=== PATIENT | female | born 1985 | race Caucasian/White ===

== ENCOUNTER 2016-07-16 14:52 | Emergency (ER) | payer OTHER, MEDICAID ==
[2016-07-16 15:13] VITALS: BP 144/77
[2016-07-16] MEDS ORDERED: Ketorolac 60 MG/2 ML SDV IM ONE (15:21)
[2016-07-16] MEDS ORDERED: Bacitracin Oint 1 GM U/D Packet TOP ONE (15:21)
--- NOTE | 2016-07-16 15:45 | EDM.PDOC ---
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 Shortly after she developed a burning sensation on the anterior lower legs and some stinging on her hands. Within a few minutes she developed erythema and even and ulceration along the edge of her boot where the chemical was pushed against the skin. Location, General: Reports: lower extremity, left, lower extremity, right Place: work Quality: Reports: Burning Severity: moderate Context, Burn/Smoke Inhalation: Reports: other (Concentrated soap possibly bleach) - Related Data Allergies/ADRs: Allergies Allergy/AdvReac Type Severity Reaction Status Date / Time No Known Allergies Allergy Verified 03/12/16 19:14 Home Meds: Home Meds Omeprazole [Prilosec] 20 mg PO DAILY #30 capsule. 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: Psychiatric History: Reports: ADD Hematologic History: Reports: Anemia, Blood transfusion(s), Transfusion reaction - Infectious Disease History Infectious Disease History: Reports: Chicken pox - Past Surgical History Female Surgical History: Reports: Hysterectomy Social & Family History - Tobacco Use Smoking Status *Q: Never Smoker Years of Tobacco use: 15 Month Tobacco Last Used: 2014 Second Hand Smoke Exposure: No - Caffeine Use Caffeine Use: Reports: Coffee - Alcohol Use Days Per Week of Alcohol Use: 0 - Recreational Drug Use Recreational Drug Use: No Drug Use in Last 12 Months: No Recreational Drug Type: Reports: Amphetamines (Speed), Methamphetamine Recreational Drug Use Frequency: Not Used In Over 6 Months ED ROS GENERAL - Review of Systems Review Of Systems: See Below Constitutional: Denies: fever, chills Respiratory: Denies: Shortness of Breath Cardiovascular: Denies: Chest pain GI/Abdominal: Denies: Nausea, Vomiting Neurological: Reports: Other (Hands feel tingly). Denies: Headache ED EXAM, BURN/SMOKE INHALATION - Physical Exam Exam: See Below Exam Limited By: No limitations General Appearance: alert, mild distress (Looks fairly uncomfortable) Respiratory: no respiratory distress Extremities: other (Patient has a scattered papular erythematous reactive rash over the anterior aspect of both lower extremities, with a 1 x 4 cm shallow ulceration transverse across the lower anterior leg at the level of her boot rim ) Course - Vital Signs Last Recorded V/S: Last Vital Signs Temp 97.7 F 07/16/16 15:13 Pulse 97 07/16/16 15:13 Resp 16 07/16/16 15:13 BP 144/77 H 07/16/16 15:13 Pulse Ox 97 07/16/16 15:13 - Orders/Labs/Meds Meds: Medications Discontinued Medications Generic Name Dose Route Start Last Admin Trade Name Gilmer PRN Reason Stop Dose Admin Bacitracin 3 dose 07/16/16 15:21 07/16/16 15:28 Bacitracin Oint 1 Gm TOP 07/16/16 15:22 3 dose ONETIME ONE Administration Ketorolac Tromethamine 60 mg 07/16/16 15:21 07/16/16 15:27 Toradol IM 07/16/16 15:22 60 mg ONETIME ONE Administration - Re-Assessments/Exams Free Text/Narrative Re-Assessment/Exam: 07/16/16 15:52 Both legs were flushed thoroughly with saline. She was observed for an additional 30 minutes and given 60 mg of ketorolac IM. The reaction did not worsen. This was covered with bacitracin and dressings, Dr. Mckeon was consulted and will recheck her wounds tomorrow morning at 10:30. She was also discharged with ketorolac to take every 6-8 hours and 10 doses of hydrocodone for any additional pain control. Departure - Departure Time of Disposition: 16:01 Disposition: Home, Self-Care 01 Condition: good Clinical Impression: Chemical burn Instructions: Chemical Burn, [id number] Referrals: Tao Chapman Sr, MD [Primary Care Provider] - Forms: ED Department Discharge Care Plan Goals: Keep legs covered until rechecked tomorrow at 10:[address] Mckeon at the clinic. You will be worked in so if you may want to arrive a little earlier. Take ketorolac every 6-8 hours for pain and add hydrocodone if needed. Elevating the legs with cool compresses over the bandages may help.
== END 2016-07-16 16:01 | disposition home or self-care (01) ==
LOC: JP.ED 14:52
DX: T24.502A Corrosion of first degree of unspecified site of left lower limb, except ankle and foot, initial encounter (principal); T24.501A Corrosion of first degree of unspecified site of right lower limb, except ankle and foot, initial encounter; T55.0X1A Toxic effect of soaps, accidental (unintentional), initial encounter; K21.9 Gastro-esophageal reflux disease without esophagitis; Z86.2 Personal history of diseases of the blood and blood-forming organs and certain disorders involving the immune mechanism; Z90.710 Acquired absence of both cervix and uterus
CPT/HCPCS: 96372; 99283; J1885

== ENCOUNTER 2017-05-22 06:47 | Day surgery (SDC) | payer MEDICAID ==
[2017-05-22] MEDS ORDERED: Propofol 200 MG/20 ML SDV ONE (08:04)
[2017-05-22] MEDS ORDERED: fentaNYL 100 MCG/2 ML SDV ONE (08:04)
[2017-05-22] MEDS ORDERED: Midazolam 1 MG/ML 2 ML SDV ONE (08:05)
[2017-05-22] MEDS ORDERED: Sodium Chloride 0.9% 1,000 ML IV SCH (08:30)
[2017-05-22 09:30] VITALS: BP 111/72
--- NOTE | 2017-05-22 12:13 | PROC ---
DATE OF PROCEDURE: 05/22/2017 INDICATION: Franca is a 32-year-old female who comes in because of significant GERD. The risks and benefits were explained for esophagogastroduodenoscopy. This is done as an outpatient. PROCEDURE IN DETAIL: Anesthesia was given by nurse elevator constructor electric. During procedure, we used 2 mg of Versed, 150 mg of propofol, and 100 mcg of fentanyl. The Olympus 180 scope was used. The tube was placed into the pharynx and the esophagus without difficulty and advanced under direct vision. We did get into the stomach without difficulty advancing 1st into the duodenum, then into the 1st and 2nd part of the small intestine. Following retraction of the tube, noted no duodenal erythema. The tube was brought back into the stomach which revealed mild erythema. Biopsy was done for Helicobacter pylori, CLOtest. We got good observation of the greater and lesser curvature as well as the fundus, which revealed no abnormality. Air was withdrawn from the stomach. The GE junction was identified and there was a small hiatal hernia with erythema in the distal esophagus. Biopsy was done for cytology. There was no significant bleeding noted after the biopsy. We got good observation of the remainder of the esophagus. The vocal cords move symmetrically. No obvious pathology noted. The tube was removed. The patient tolerated the procedure well. Preop: GERD. Postop: 1. Mild gastritis. 2. Distal esophagitis. Biopsies pending for cytology of the esophagus and a CLOtest in the antrum area. I will speak with her once the biopsies are reported. Tao Chapman MD /[id number]
== END 2017-05-22 09:30 | disposition home or self-care (01) ==
LOC: JP.SDS 06:47
PROVIDERS: ATTEND Internal Medicine
DX: K21.0 Gastro-esophageal reflux disease with esophagitis (principal); K44.9 Diaphragmatic hernia without obstruction or gangrene; I10 Essential (primary) hypertension; E66.9 Obesity, unspecified; F41.9 Anxiety disorder, unspecified
CPT/HCPCS: 43239; 87081; J2250; J2704; J3010; J7040; 88305

== ENCOUNTER 2018-10-01 08:19 | Emergency (ER) | payer MEDICAID ==
[2018-10-01 08:32] VITALS: BP 123/100
[2018-10-01] MEDS ORDERED: Ketorolac 60 MG/2 ML SDV IM ONE (08:44)
[2018-10-01] MEDS ORDERED: Triamcinolone Acetonide 40 MG/ML 1 ML MDV INJECT ONE (08:44)
--- NOTE | 2018-10-01 08:53 | EDM.PDOC ---
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 Her primary provider is not available today. She woke up with this headache at 2 AM, its posterior and radiates to the top of her head and she does have some photophobia. It is very similar to her previous headaches. No neurologic deficits or complaints other than the headache. No fever or chills or recent illness. Onset: Unknown/Unsure (woke up with pain at 2 AM) Associated Symptoms: Reports: Loss of Appetite, Malaise. Denies: Chest Pain, Fever/Chills, Nausea/Vomiting, Shortness of Breath Headache Pain Score (Numeric/FACES): 10 - Related Data Allergies Allergy/AdvReac Type Severity Reaction Status Date / Time No Known Allergies Allergy Verified 10/01/18 08:32 Home Meds: Home Meds Omeprazole [Prilosec] 20 mg PO DAILY #30 capsule.dr 03/05/13 [Rx] Lisdexamfetamine Dimesylate [Vyvanse] 60 mg PO DAILY 05/21/17 [History] Sertraline HCl [Zoloft] 100 mg PO DAILY 05/21/17 [History] hydrOXYzine HCl [Atarax] 10 - 40 mg PO Q6H PRN 05/21/17 [History] SUMAtriptan Succinate [Imitrex] 100 mg PO ASDIRECTED 10/01/18 [History] Past Medical History - Past Health History Medical/Surgical History: Denies Medical/Surgical History Cardiovascular History: Reports: Hypertension Gastrointestinal History: Reports: GERD Genitourinary History: Reports: Urinary Incontinence 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: Musculoskeletal History: Reports: Fibromyalgia Neurological History: Reports: Migraines Psychiatric History: Reports: ADD, Anxiety, Depression Endocrine/Metabolic History: Reports: Obesity/BMI 30+ Hematologic History: Reports: Anemia, Blood Transfusion(s), Transfusion Reaction - Infectious Disease History Infectious Disease History: Reports: Chicken Pox - Past Surgical History Head Surgeries/Procedures: Reports: None Cardiovascular Surgical History: Reports: None GI Surgical History: Reports: None Female Surgical History: Reports: Hysterectomy Endocrine Surgical History: Reports: None Neurological Surgical History: Reports: None Musculoskeletal Surgical History: Reports: None Dermatological Surgical History: Reports: None Social & Family History - Family History Family Medical History: Noncontributory - Tobacco Use Smoking Status *Q: Current Every Day Smoker Years of Tobacco use: 2 Packs/Tins Daily: 0 Used Tobacco, but Quit: No Second Hand Smoke Exposure: No - Caffeine Use Caffeine Use: Reports: Coffee - Recreational Drug Use Recreational Drug Use: No ED ROS GENERAL - Review of Systems Review Of Systems: See Below Constitutional: Reports: Malaise. Denies: Fever, Chills HEENT: Denies: Vision Change Respiratory: Reports: No Symptoms Cardiovascular: Reports: Dyspnea on Exertion GI/Abdominal: Reports: No Symptoms Musculoskeletal: Reports: Neck Pain - Physical Exam Exam: See Below Exam Limited By: No Limitations General Appearance: Alert, No Apparent Distress (Looks uncomfortable but not in distress) Eye Exam: Bilateral Eye: EOMI, PERRL Head Exam: Atraumatic Neck: Other (Some stiffness along the posterior neck with range of motion) Respiratory/Chest: No Respiratory Distress Neuro Exam (Abbreviated): Alert, Oriented Psychiatric: Normal Affect, Normal Mood Skin Exam: Warm, Dry Course - Vital Signs Last Recorded V/S: Last Vital Signs Temp 96.4 F 10/01/18 08:33 Pulse 79 10/01/18 08:33 Resp 16 10/01/18 08:33 BP 123/100 H 10/01/18 08:33 Pulse Ox 99 10/01/18 08:33 - Orders/Labs/Meds Meds: Medications Discontinued Medications Generic Name Dose Route Start Last Admin Trade Name Gilmer PRN Reason Stop Dose Admin Ketorolac Tromethamine 60 mg 10/01/18 08:44 10/01/18 08:55 Toradol IM 10/01/18 08:45 60 mg ONETIME ONE Administration Triamcinolone Acetonide 40 mg 10/01/18 08:44 10/01/18 08:55 Kenalog-40 INJECT 10/01/18 08:45 40 mg ONETIME ONE Administration - Re-Assessments/Exams Free Text/Narrative Re-Assessment/Exam: 10/01/18 08:51 Patient was given 60 mg of IM ketorolac along with 40 mg of IM Kenalog. Apparently she receives her usual dose of 80 mg of Kenalog however she received an injection within the last 2 months and this seems a fairly significant dose to be repeating on a regular basis. She should get some significant anti- inflammatory effect from 40 mg. She'll return if not improving satisfactorily. Departure - Departure Time of Disposition: 09:04 Disposition: Home, Self-Care 01 Condition: Good Clinical Impression: Tension-type headache - Discharge Information Instructions: Recurrent Migraine Headache, [id number] Referrals: Tao Chapman Sr, MD [Primary Care Provider] - Forms: ED Department Discharge Care Plan Goals: Continue your current medications and return if not improving satisfactorily.
== END 2018-10-01 09:04 | disposition home or self-care (01) ==
LOC: JP.ED 08:19
DX: G44.209 Tension-type headache, unspecified, not intractable (principal); I10 Essential (primary) hypertension; K21.9 Gastro-esophageal reflux disease without esophagitis; F41.9 Anxiety disorder, unspecified; F32.9 Major depressive disorder, single episode, unspecified; F17.210 Nicotine dependence, cigarettes, uncomplicated; Z79.899 Other long term (current) drug therapy
CPT/HCPCS: 96372; 99283; J1885; J3301

== ENCOUNTER 2019-08-15 17:18 | Emergency (ER) | payer MEDICAID ==
--- NOTE | 2019-08-15 18:13 | EDM.PDOC ---
ED HPI GENERAL MEDICAL PROBLEM - General Chief Complaint: Chest Pain Stated Complaint: CHEST PAIN Time Seen by Provider: 08/15/19 18:05 Source of Information: Reports: Patient, Old Records History Limitations: Reports: No Limitations - History of Present Illness INITIAL COMMENTS - FREE TEXT/NARRATIVE: 34 yo female here with L anterior chest pain today. No hx of CAD. No SOB, nausea or diaphoresis. Pain related to use of L arm. No recent injury or unusual exertion. No self tx. No hx of the same. 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: Musculoskeletal History: Reports: Fibromyalgia Neurological History: Reports: Migraines Psychiatric History: Reports: ADD, Anxiety, Depression Endocrine/Metabolic History: Reports: Obesity/BMI 30+ Hematologic History: Reports: Anemia, Blood Transfusion(s), Transfusion Reaction - Infectious Disease History Infectious Disease History: Reports: Chicken Pox - Past Surgical History Head Surgeries/Procedures: Reports: None Cardiovascular Surgical History: Reports: None GI Surgical History: Reports: None Female Surgical History: Reports: Hysterectomy Endocrine Surgical History: Reports: None Neurological Surgical History: Reports: None Musculoskeletal Surgical History: Reports: None Dermatological Surgical History: Reports: None Social & Family History - Family History Family Medical History: Noncontributory - Caffeine Use Caffeine Use: Reports: Coffee ED ROS GENERAL - Review of Systems Review Of Systems: See Below Constitutional: Reports: No Symptoms HEENT: Reports: No Symptoms Respiratory: Reports: No Symptoms Cardiovascular: Reports: Chest Pain (chest wall) Endocrine: Reports: No Symptoms GI/Abdominal: Reports: No Symptoms : Reports: No Symptoms Musculoskeletal: Reports: No Symptoms Skin: Reports: No Symptoms ED EXAM, GENERAL - Physical Exam Exam: See Below Exam Limited By: No Limitations General Appearance: Alert, WD/WN, No Apparent Distress Eye Exam: Bilateral Eye: Normal Inspection Ears: Hearing Grossly Normal Nose: Normal Inspection, No Blood Throat/Mouth: Normal Lips, Normal Voice, No Airway Compromise Head: Atraumatic, Normocephalic Neck: Normal Inspection Respiratory/Chest: No Respiratory Distress, Lungs Clear, Normal Breath Sounds, No Accessory Muscle Use Cardiovascular: Regular Rate, Rhythm, No Edema GI/Abdominal: Normal Bowel Sounds, Soft, Non-Tender, No Distention Extremities: Normal Inspection, Normal Range of Motion, Non-Tender, No Pedal Edema, Other (tender on palpation over the L pectoralis muscle. Increased pain with activation of this muscle. ) Neurological: Alert, Oriented, CN II-XII Intact, Normal Cognition, No Motor/ Sensory Deficits Psychiatric: Normal Affect, Normal Mood Skin Exam: Warm, Dry, Intact, Normal Color, No Rash EKG INTERPRETATION EKG Date: 08/15/19 Time: 17:50 Rhythm: NSR Rate (Beats/Min): 62 [place]: Normal P-Wave: Present QRS: Normal ST-T: Normal QT: Normal Comparison: NA - No Prior EKG Course - Vital Signs Last Recorded V/S: Last Vital Signs Temp 36.5 C 08/15/19 18:18 Pulse 62 08/15/19 18:18 Resp 18 08/15/19 18:18 BP 109/71 08/15/19 18:18 Pulse Ox 100 08/15/19 18:18 - Orders/Labs/Meds Meds: Medications Discontinued Medications Generic Name Dose Route Start Last Admin Trade Name Freq PRN Reason Stop Dose Admin Acetaminophen 1,000 mg 08/15/19 18:15 08/15/19 18:24 Tylenol Extra Strength PO 08/15/19 18:16 1,000 mg ONETIME ONE Administration Cyclobenzaprine HCl 10 mg 08/15/19 19:01 08/15/19 19:15 Flexeril PO 08/15/19 19:02 10 mg ONETIME ONE Administration Ketorolac Tromethamine 60 mg 08/15/19 18:15 08/15/19 18:22 Toradol IM 08/15/19 18:16 60 mg ONETIME ONE Administration - Re-Assessments/Exams Free Text/Narrative Re-Assessment/Exam: 08/15/19 19:35 minimal change with Toradol/acetaminophen, good relief with Flexeril. Departure - Departure Time of Disposition: 19:40 Disposition: Home, Self-Care 01 Condition: Good Clinical Impression: Pectoralis muscle strain Qualifiers: Encounter type: initial encounter Qualified Code(s): S29.011A - Strain of muscle and tendon of front wall of thorax, initial encounter Instructions: Muscle Strain, [id number] Referrals: PCP,None [Primary Care Provider] - Forms: ED Department Discharge Additional Instructions: Take Flexeril every 8 hrs as needed. Rest your left arm for the next couple of days. Recheck with your provider if not improving. Sepsis Event Note - Evaluation Sepsis Screening Result: No Definite Risk - Focused Exam Vital Signs: Vital Signs Temp Pulse Resp BP Pulse Ox 08/15/19 18:18 36.5 C 62 18 109/71 100 08/15/19 18:10 60 16 109/61 97 08/15/19 18:06 123/67 08/15/19 17:28 36.8 C 72 18 120/71 97 Date Exam was Performed: 08/15/19 Time Exam was Performed: 19:35
[2019-08-15] MEDS ORDERED: Ketorolac 60 MG/2 ML SDV IM ONE (18:15)
[2019-08-15] MEDS ORDERED: Acetaminophen 500 MG Tab PO ONE (18:15)
[2019-08-15 18:35] VITALS: BP 109/71; PULSE 62
[2019-08-15] MEDS ORDERED: Cyclobenzaprine 10 MG Tab PO ONE (19:01)
== END 2019-08-15 20:00 | disposition home or self-care (01) ==
LOC: JP.ED 17:18
DX: S29.011A Strain of muscle and tendon of front wall of thorax, initial encounter (principal); K21.9 Gastro-esophageal reflux disease without esophagitis; I10 Essential (primary) hypertension; F41.9 Anxiety disorder, unspecified; F32.9 Major depressive disorder, single episode, unspecified; F98.8 Other specified behavioral and emotional disorders with onset usually occurring in childhood and adolescence; E66.9 Obesity, unspecified; Z68.41 Body mass index [BMI] 40.0-44.9, adult; Z79.899 Other long term (current) drug therapy; X58.XXXA Exposure to other specified factors, initial encounter
CPT/HCPCS: 96372; 99284; A9270; J1885

== ENCOUNTER 2020-06-09 03:10 | Emergency (ER) | payer MEDICAID ==
[2020-06-09 03:30] VITALS: BP 146/90; PULSE 72
[2020-06-09] MEDS ORDERED: Ondansetron 4 MG/2 ML SDV IVPUSH ONE (03:32)
[2020-06-09] MEDS ORDERED: Sodium Chloride 0.9% 10 ML Syringe FLUSH PRN (03:32)
[2020-06-09] MEDS ORDERED: Ketorolac 30 MG/ML SDV IVPUSH ONE (03:32)
--- NOTE | 2020-06-09 03:47 | EDM.PDOC ---
ED HPI GENERAL MEDICAL PROBLEM - General Chief Complaint: Abdominal Pain Stated Complaint: STOMACH PAIN Time Seen by Provider: 06/09/20 03:26 Source of Information: Reports: Patient History Limitations: Reports: No Limitations - History of Present Illness INITIAL COMMENTS - FREE TEXT/NARRATIVE: Franca 35-year-old female presenting to the ED for evaluation of acute onset of epigastric and right upper quadrant abdominal pain. Patient was in her usual state of health tonight and consumed dominoes with her kids. She went to bed and was promptly awakened at 2300 hrs. with severe epigastric pain radiating into the right upper quadrant. Patient had some nausea but denied any vomiting. She is concerned she may be a little constipated. She has a history for gastroesophageal reflux disease and states that this is much worse. Any fever, chills, loss of taste or smell, cough or shortness of breath. No urinary symptoms including urgency, frequency, or burning. Abdomen Pain Score (Numeric/FACES): 10 - Related Data Allergies Allergy/AdvReac Type Severity Reaction Status Date / Time erenumab-aooe Allergy Cannot Verified 06/09/20 03:18 [From Aimovig Autoinjector] Remember Home Meds: Home Meds Lisdexamfetamine Dimesylate [Vyvanse] 40 mg PO DAILY 05/21/17 [History] SUMAtriptan succinate [Imitrex] 100 mg PO ASDIRECTED 10/01/18 [History] Ibuprofen 800 mg PO ASDIRECTED 08/15/19 [History] Omeprazole [Prilosec] 20 mg PO DAILY 01/21/20 [History] Rizatriptan Benzoate [Rizatriptan] 10 mg PO ASDIRECTED 01/21/20 [History] Sertraline HCl [Zoloft] 100 mg PO DAILY 01/21/20 [History] Past Medical History - Past Health History Medical/Surgical History: Denies Medical/Surgical History Cardiovascular History: Reports: Hypertension Gastrointestinal History: Reports: GERD Genitourinary History: Reports: Urinary Incontinence 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: Musculoskeletal History: Reports: Fibromyalgia Neurological History: Reports: Migraines Psychiatric History: Reports: ADD, Anxiety, Depression Endocrine/Metabolic History: Reports: Obesity/BMI 30+ Hematologic History: Reports: Anemia, Blood Transfusion(s), Transfusion Reaction - Infectious Disease History Infectious Disease History: Reports: Chicken Pox - Past Surgical History Head Surgeries/Procedures: Reports: None Cardiovascular Surgical History: Reports: None GI Surgical History: Reports: None Female Surgical History: Reports: Hysterectomy Endocrine Surgical History: Reports: None Neurological Surgical History: Reports: None Musculoskeletal Surgical History: Reports: None Dermatological Surgical History: Reports: None Social & Family History - Family History Family Medical History: No Pertinent Family History - Tobacco Use Tobacco Use Status *Q: Current Every Day Tobacco User Years of Tobacco use: 12 Packs/Tins Daily: 0.2 - Caffeine Use Caffeine Use: Reports: Coffee - Recreational Drug Use Recreational Drug Use: No ED ROS GENERAL - Review of Systems Review Of Systems: See Below Constitutional: Reports: No Symptoms HEENT: Reports: No Symptoms Respiratory: Reports: No Symptoms Cardiovascular: Reports: No Symptoms Endocrine: Reports: No Symptoms GI/Abdominal: Reports: Abdominal Pain (Epigastric and right upper quadrant pain that is sharp, stabbing, and not moving since the onset at 2300 hrs. (4-1/2 hours ago)), Constipation, Nausea. Denies: Vomiting : Reports: No Symptoms Musculoskeletal: Reports: No Symptoms Skin: Reports: No Symptoms Neurological: Reports: No Symptoms Psychiatric: Reports: No Symptoms Hematologic/Lymphatic: Reports: No Symptoms Immunologic: Reports: No Symptoms ED EXAM, GI/ABD - Physical Exam Exam: See Below Exam Limited By: No Limitations General Appearance: Alert, Moderate Distress, Obese Eyes: Bilateral: EOMI Throat/Mouth: Normal Inspection, Normal Lips, Normal Oropharynx, Normal Voice Head: Atraumatic, Normocephalic Neck: Normal Inspection, Supple Respiratory/Chest: No Respiratory Distress, Lungs Clear, Normal Breath Sounds Cardiovascular: Normal Peripheral Pulses, Regular Rate, Rhythm, No Murmur GI/Abdominal Exam: Soft, Guarding, Tender (Epigastric and right upper quadrant tenderness. Positive Montero sign.), Abnormal Bowel Sounds (Diminished bowel sounds). No: Rigid, Rebound Back Exam: Normal Inspection, Full Range of Motion Extremities: Normal Inspection, Normal Range of Motion Neurological: Alert, Oriented, Normal Cognition, No Motor/Sensory Deficits Psychiatric: Normal Affect, Anxious Skin Exam: Warm, Dry, No Rash Lymphatic: No Adenopathy Course - Vital Signs Last Recorded V/S: Last Vital Signs Temp 35.7 C L 06/09/20 03:20 Pulse 72 03/05/21 03:20 Resp 16 06/09/20 03:20 BP 146/90 H 06/09/20 03:20 Pulse Ox 99 06/09/20 03:20 - Orders/Labs/Meds Orders: Active Orders 24 hr Category Date Time Status Abdomen Pelvis w Cont [CT] Stat Exams 06/09/20 03:32 Ordered Sodium Chloride 0.9% [Saline Flush] Med 06/09/20 03:32 Ordered 10 ml FLUSH ASDIRECTED PRN Saline Lock Insert [OM.PC] Routine Oth 06/09/20 03:32 Ordered Medication Orders Sodium Chloride (Saline Flush) 10 ml FLUSH ASDIRECTED PRN PRN Reason: Keep Vein Open Last Admin: 06/09/20 03:40 Dose: 10 ml Documented by: RASHARD Labs: Laboratory Tests 06/09/20 06/09/20 Range/Units 03:40 03:40 WBC 7.9 (4.5-11.0) K/uL RBC 4.85 (3.30-5.50) M/uL Hgb 13.8 (12.0-15.0) g/dL Hct 41.9 (36.0-48.0) % MCV 86 (80-98) fL MCH 29 (27-31) pg MCHC 33 (32-36) % Plt Count 255 (150-400) K/uL Neut % (Auto) 63 (36-66) % Lymph % (Auto) 26 (24-44) % [place] % (Auto) 8 H (2-6) % Eos % (Auto) 3 (2-4) % Baso % (Auto) 0 (0-1) % Sodium 140 (140-148) mmol/L Potassium 4.2 (3.6-5.2) mmol/L Chloride 105 (100-108) mmol/L Carbon Dioxide 24 (21-32) mmol/L Anion Gap 10.7 (5.0-14.0) mmol/L BUN 15 (7-18) mg/dL Creatinine 0.8 (0.6-1.0) mg/dL Est Cr Clr Drug Dosing 93.63 mL/min Estimated GFR (MDRD) > 60 (>60) Glucose 118 H (74-106) mg/dL Calcium 8.4 L (8.5-10.1) mg/dL Total Bilirubin 0.3 (0.2-1.0) mg/dL AST 18 (15-37) U/L ALT 36 (12-78) U/L Alkaline Phosphatase 69 (46-116) U/L C-Reactive Protein 0.28 (0.0-0.3) mg/dL Total Protein 6.6 (6.4-8.2) g/dL Albumin 3.4 (3.4-5.0) g/dL Globulin 3.2 (2.3-3.5) g/dL Albumin/Globulin Ratio 1.1 L (1.2-2.2) Lipase 84 (73-393) U/L Meds: Medications Generic Name Dose Route Start Last Admin Trade Name Freq PRN Reason Stop Dose Admin Sodium Chloride 10 ml 06/09/20 03:32 06/09/20 03:40 Saline Flush FLUSH 10 ml ASDIRECTED PRN Administration Keep Vein Open Discontinued Medications Generic Name Dose Route Start Last Admin Trade Name Freq PRN Reason Stop Dose Admin Sodium Chloride 85 mls @ 3.5 mls/sec 06/09/20 04:03 Normal Saline IV 06/09/20 04:04 ASDIRECTED STA Iopamidol 150 ml 06/09/20 04:03 Isovue-300 (61%) IV 06/09/20 04:04 . DIRECTED STA Ketorolac Tromethamine 30 mg 06/09/20 03:32 06/09/20 03:40 Toradol IVPUSH 06/09/20 03:33 30 mg ONETIME ONE Administration Ondansetron HCl 4 mg 06/09/20 03:32 06/09/20 03:40 Zofran IVPUSH 06/09/20 03:33 4 mg ONETIME ONE Administration - Radiology Interpretation Free Text/Narrative:: Reviewed the report on the CT of the abdomen and pelvis with contrast showing modest amount of radiodense stones in the gallbladder without evidence of acute cholecystitis or pericystic fluid. The remainder the abdomen is unremarkable. - Re-Assessments/Exams Free Text/Narrative Re-Assessment/Exam: 06/09/20 04:12 viewed the patient's labs showing a normal CBC, comprehensive metabolic panel, and lipase. Patient has an IV established and received Toradol 30 mg and Zofran 4 mg IV. Patient has had some improvement in her pain with this medication. We will proceed with a CT of the abdomen and pelvis with contrast to evaluate for source of epigastric and right upper quadrant pain. 06/09/20 05:31 the patient will follow up with Dr. Resendiz per her request to discuss treatment options for symptomatic cholelithiasis. At this time she is suitable for discharge home in satisfactory condition. I have prescribed her a small amount of Zofran for any ongoing nausea. We did discuss dietary restrictions to limit acute exacerbation of her symptoms. All questions were answered and she suitable for discharge in satisfactory condition. Departure - Departure Time of Disposition: 05:32 Disposition: Home, Self-Care 01 Condition: Good Clinical Impression: Symptomatic cholelithiasis, Epigastric pain - Discharge Information *PRESCRIPTION DRUG MONITORING PROGRAM REVIEWED*: Not Applicable *COPY OF PRESCRIPTION DRUG MONITORING REPORT IN PATIENT JUAN J: Not Applicable Instructions: Cholelithiasis Referrals: Tao Chapman Sr, MD [Primary Care Provider] - Forms: ED Department Discharge Care Plan Goals: I have put in a follow-up referral for you for Dr. Resendiz to talk about options for treating your symptomatic cholelithiasis. I would recommend avoiding any fried or fatty foods as these will stimulate the gallbladder to contract and will likely cause additional pain. I would stick with a bland diet. Should you develop any significant fever, chills, nausea or worsening epigastric pain, return to the ED for reevaluation. Sepsis Event Note (ED) - Evaluation Sepsis Screening Result: No Definite Risk - Focused Exam Vital Signs: Vital Signs Temp Pulse Resp BP Pulse Ox 06/09/20 03:20 35.7 C L 72 16 146/90 H 99 - Problem List & Annotations (1) Epigastric pain SNOMED Code(s): 37117328 Code(s): R10.13 - EPIGASTRIC PAIN Status: Acute Priority: High Current Visit: Yes (2) Symptomatic cholelithiasis SNOMED Code(s): 446912248, 571707388 Code(s): K80.20 - CALCULUS OF GALLBLADDER W/O CHOLECYSTITIS W/O OBSTRUCTION Status: Acute Priority: High Current Visit: Yes - Problem List Review Problem List Initiated/Reviewed/Updated: Yes - My Orders Last 24 Hours: My Active Orders 06/09/20 03:32 Abdomen Pelvis w Cont [CT] Stat Sodium Chloride 0.9% [Saline Flush] 10 ml FLUSH ASDIRECTED PRN Saline Lock Insert [OM.PC] Routine - Assessment/Plan Last 24 Hours: My Active Orders 06/09/20 03:32 Abdomen Pelvis w Cont [CT] Stat Sodium Chloride 0.9% [Saline Flush] 10 ml FLUSH ASDIRECTED PRN Saline Lock Insert [OM.PC] Routine
[2020-06-09] MEDS ORDERED: Iopamidol 612 MG/ML 150 ML Bottle IV STA (04:03)
--- NOTE | 2020-06-09 05:29 | CRLCT ---
INDICATION: Right upper quadrant and epigastric pain. COMPARISON: 01/25/2015 TECHNIQUE: CT examination of the abdomen and pelvis was performed with the uneventful intravenous administration of 150 cc of Isovue-300 while 3 mm thick axial sections were obtained from the lung bases through the pubic symphysis. Oral contrast was not administered. Please note that all CT scans at this facility use dose modulation, iterative reconstruction, and/or weight-based dosing when appropriate to reduce radiation dose to as low as reasonably achievable. FINDINGS: In the abdomen, the liver, spleen, pancreas, and adrenals are normal in appearance. The kidneys are normal in appearance. There is new moderate cholelithiasis, with multiple mildly radiodense dependent calculi measuring up to 1.2 centimeters in diameter in the gallbladder. There is no sign of acute cholecystitis, with no sign of gallbladder wall thickening or pericholecystic fluid. The abdominal aorta is normal in caliber with no sign of dilatation. There is no sign of retroperitoneal mass or adenopathy. There is a stable small hiatal hernia. The rest of the stomach, loops of small bowel, and colon in the abdomen are otherwise normal in appearance. In the pelvis, the appendix is normal in appearance with no sign of inflammatory process. The loops of small bowel and colon in the pelvis are normal in appearance. The uterus is again seen to be absent and the adnexal regions are normal in appearance. The urinary bladder is normal in appearance. There is no sign of pelvic or inguinal mass or adenopathy. There is no sign of free air or free fluid in the abdomen or pelvis. The lung bases are clear. The osseous structures are normal in appearance for the patient`s age. IMPRESSION: CT of the abdomen shows new moderate cholelithiasis with no sign of acute cholecystitis or biliary ductal dilatation. Stable small hiatal hernia. CT of the pelvis shows stable changes of hysterectomy. Please note that all CT scans at this facility use dose modulation, iterative reconstruction, and/or weight-based dosing when appropriate to reduce radiation dose to as low as reasonably achievable. Dictated by Daniel Ferro MD @ Jun 09 2020 5:23AM Signed by Dr. Daniel Ferro @ Jun 09 2020 5:27AM
== END 2020-06-09 05:39 | disposition home or self-care (01) ==
LOC: JP.ED 03:10
DX: K80.20 Calculus of gallbladder without cholecystitis without obstruction (principal); I10 Essential (primary) hypertension; K21.9 Gastro-esophageal reflux disease without esophagitis; E66.9 Obesity, unspecified; Z68.41 Body mass index [BMI] 40.0-44.9, adult; Z72.0 Tobacco use; Z88.8 Allergy status to other drugs, medicaments and biological substances; Z79.899 Other long term (current) drug therapy
CPT/HCPCS: 36415; 74177; 80053; 83690; 85025; 86140; 96374; 96375; 99284; J1885; J2405; Q9967

== ENCOUNTER 2020-08-09 08:35 | Emergency (ER) | payer MEDICAID ==
[2020-08-09] MEDS ORDERED: Ketorolac 60 MG/2 ML SDV IM ONE (09:10)
[2020-08-09] MEDS ORDERED: Cyclobenzaprine 10 MG Tab PO ONE (09:10)
--- NOTE | 2020-08-09 09:12 | EDM.PDOC ---
ED HPI GENERAL MEDICAL PROBLEM - General Chief Complaint: Back Pain or Injury Stated Complaint: back and hip pain Time Seen by Provider: 08/09/20 09:07 Source of Information: Reports: Patient, RN Notes Reviewed History Limitations: Reports: No Limitations - History of Present Illness INITIAL COMMENTS - FREE TEXT/NARRATIVE: 35-year-old female presents emergency department a complaint of low back pain, she believes she may have injured herself yesterday when she was outside playing with children had difficulty getting up from a bent position and now this morning pain is quite significant has had no loss of bowel or bladder no fever Right Back Pain Score (Numeric/FACES): 10 - Related Data Allergies Allergy/AdvReac Type Severity Reaction Status Date / Time erenumab-aooe Allergy Cannot Verified 08/09/20 10:22 [From Aimovig Autoinjector] Remember Home Meds: Home Meds Ibuprofen 800 mg PO ASDIRECTED 08/15/19 [History] Omeprazole [Prilosec] 40 mg PO DAILY 01/21/20 [History] Rizatriptan Benzoate [Rizatriptan] 10 mg PO ASDIRECTED 01/21/20 [History] Sertraline HCl [Zoloft] 150 mg PO DAILY 01/21/20 [History] Lisdexamfetamine Dimesylate [Vyvanse] 40 mg PO DAILY 08/01/20 [History] Past Medical History Cardiovascular History: Reports: Hypertension Gastrointestinal History: Reports: GERD Genitourinary History: Reports: Urinary 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: Musculoskeletal History: Reports: Fibromyalgia Neurological History: Reports: Migraines Psychiatric History: Reports: ADD, Anxiety, Depression Endocrine/Metabolic History: Reports: Obesity/BMI 30+ Hematologic History: Reports: Anemia, Blood Transfusion(s), Transfusion Reaction - Infectious Disease History Infectious Disease History: Reports: Chicken Pox - Past Surgical History Head Surgeries/Procedures: Reports: None Cardiovascular Surgical History: Reports: None GI Surgical History: Reports: None Female Surgical History: Reports: Hysterectomy Endocrine Surgical History: Reports: None Neurological Surgical History: Reports: None Musculoskeletal Surgical History: Reports: None Dermatological Surgical History: Reports: None Social & Family History - Family History Family Medical History: No Pertinent Family History - Caffeine Use Caffeine Use: Reports: Coffee - Recreational Drug Use Recreational Drug Use: No ED ROS GENERAL - Review of Systems Review Of Systems: See Below Constitutional: Reports: No Symptoms Musculoskeletal: Reports: Back Pain Neurological: Reports: No Symptoms ED EXAM, UPPER BACK/NECK PAIN - Physical Exam Exam: See Below Exam Limited By: No Limitations General Appearance: Alert, WD/WN, No Apparent Distress Cardiovascular/Respiratory: No Respiratory Distress Back Exam: Normal Inspection, Decreased Range of Motion, Muscle Spasm, Paraspinal Tenderness (Right side). No: CVA Tenderness (R), CVA Tenderness (L), Vertebral Tenderness Course - Vital Signs Last Recorded V/S: Last Vital Signs Temp 97.7 F 08/09/20 09:06 Pulse 59 L 08/09/20 09:51 Resp 20 08/09/20 09:06 BP 106/56 L 08/09/20 09:51 Pulse Ox 100 08/09/20 09:51 - Orders/Labs/Meds Meds: Medications Discontinued Medications Generic Name Dose Route Start Last Admin Trade Name [place] PRN Reason Stop Dose Admin Cyclobenzaprine HCl 10 mg 08/09/20 09:10 08/09/20 09:28 Cyclobenzaprine 10 Mg Tab PO 08/09/20 09:11 10 mg ONETIME ONE Administration Fentanyl 50 mcg 08/09/20 10:01 08/09/20 10:20 Fentanyl 100 Mcg/2 Ml Sdv IM 08/09/20 10:02 50 mcg ONETIME ONE Administration Ketorolac Tromethamine 60 mg 08/09/20 09:10 08/09/20 09:28 Ketorolac 60 Mg/2 Ml Sdv IM 08/09/20 09:11 60 mg ONETIME ONE Administration Departure - Departure Time of Disposition: 11:05 Disposition: Home, Self-Care 01 Condition: Fair Clinical Impression: Low back pain Qualifiers: Chronicity: acute Back pain laterality: right Sciatica presence: without sciatica Qualified Code(s): M54.5 - Low back pain - Discharge Information Instructions: Acute Back Pain, Adult, Muscle Strain, [id number] Referrals: PCP,None [Primary Care Provider] - Forms: ED Department Discharge Additional Instructions: Continue to use ibuprofen for baseline pain control use hydrocodone for breakthrough pain, please followup with your primary care provider in 3-5 days if not better, please call return to the emergency department with worsening of symptoms. Sepsis Event Note (ED) - Evaluation Sepsis Screening Result: No Definite Risk - Focused Exam Vital Signs: Vital Signs Temp Pulse Resp BP Pulse Ox 08/09/20 09:51 59 L 106/56 L 100 08/09/20 09:06 97.7 F 71 20 103/54 L 97 08/09/20 09:00 97.7 F 71 20 103/54 L 97 - Assessment/Plan Plan: Assessment Acuity = acute Site and laterality = low back pain Etiology = secondary to twisting injury Manifestations = none Location of injury = Home Lab values = none Plan Good improvement combination Toradol fentanyl discharged home with hydrocodone 5/325 1 tab p.o. 3 times daily as needed total #10 follow-up primary care 3 to 5 days if not better This note was dictated using [employer] voice recognition software please call with any questions on syntax or grammar.
[2020-08-09] MEDS ORDERED: fentaNYL 100 MCG/2 ML SDV IM ONE (10:01)
[2020-08-09 10:25] VITALS: BP 106/56; PULSE 59
== END 2020-08-09 11:17 | disposition home or self-care (01) ==
LOC: JP.ED 08:35
DX: M54.5 Low back pain (principal); I10 Essential (primary) hypertension; K21.9 Gastro-esophageal reflux disease without esophagitis; E66.9 Obesity, unspecified; Z68.41 Body mass index [BMI] 40.0-44.9, adult; Z88.8 Allergy status to other drugs, medicaments and biological substances; Z79.899 Other long term (current) drug therapy
CPT/HCPCS: 96372; 99283; A9270-GY; J1885; J3010

== ENCOUNTER 2022-04-30 06:38 | Day surgery (SDC) | payer MEDICAID ==
[~2022-04-30 06:38] MED LIST: Acetaminophen 500 MG Tab PO ONE
[2022-04-30] MEDS ORDERED: Lidocaine 1% with EPINEPHrine 1:100,000 50 ML MDV ONE (06:46)
[2022-04-30] MEDS ORDERED: Bupivacaine 0.5% 50 ML MDV ONE (06:46)
[2022-04-30] MEDS ORDERED: Indocyanine Green 25 MG SDV IV ONE (07:00)
[2022-04-30] MEDS ORDERED: Dextrose 5%-Lactated Ringers 1,000 ML IV SCH (07:00)
[2022-04-30] MEDS ORDERED: Glycopyrrolate 0.2 MG/ML 5 ML MDV ONE ×2 (07:10→10:09)
[2022-04-30] MEDS ORDERED: Rocuronium 50 MG/5 ML Vial ONE ×2 (07:10→10:09)
[2022-04-30] MEDS ORDERED: Succinylcholine 200 MG/10 ML MDV ONE (07:10)
[2022-04-30] MEDS ORDERED: Neostigmine Methylsulfate 1 MG/ML 5 ML Syringe ONE ×2 (07:10→10:09)
[2022-04-30] MEDS ORDERED: Propofol 200 MG/20 ML SDV ONE ×2 (07:10→10:09)
[2022-04-30] MEDS ORDERED: Ondansetron 4 MG/2 ML SDV ONE ×2 (07:10→10:09)
[2022-04-30] MEDS ORDERED: Dexamethasone 4 MG/ML SDV ONE ×2 (07:10→10:09)
[2022-04-30] MEDS ORDERED: Nicotine 21 MG/24 Hr Patch TRDERM ONE (07:27)
[2022-04-30 07:30] LABS: ESTIMATED GFR 96 mL/min (>60)
[2022-04-30] MEDS ORDERED: cefOXitin 2 GM in Sodium Chloride 0.9% 50 ML IV ONE (07:30)
[2022-04-30] MEDS ORDERED: Ketamine 18 MG in Sodium Chloride 0.9% 19.82 ML IV SCH (08:15)
[2022-04-30] MEDS ORDERED: Ketamine 500 MG/5 ML MDV IV SCH (08:15)
[2022-04-30] MEDS ORDERED: fentaNYL 250 MCG/5 ML SDV ONE (10:06)
[2022-04-30] MEDS ORDERED: Ketorolac 30 MG/ML SDV ONE (10:42)
[2022-04-30] MEDS ORDERED: hydrOXYzine HCL 100 MG/2 ML SDV IM ONE (11:05)
[2022-04-30] MEDS ORDERED: fentaNYL 50 MCG/ML SDV IVPUSH ONE (11:05)
[2022-04-30] MEDS ORDERED: HYDROmorphone 1 MG/ML Syringe IVPUSH ONE (11:40)
[2022-04-30] MEDS ORDERED: Ondansetron 4 MG/2 ML SDV IVPUSH ONE (11:41)
[2022-04-30] MEDS ORDERED: HYDROmorphone 2 MG Tab PO PRN (12:51)
[2022-04-30 15:05] VITALS: BP 149/88; PULSE 60
== END 2022-04-30 15:00 | disposition home or self-care (01) ==
LOC: JP.SDS 06:38
PROVIDERS: ATTEND Surgery
DX: K80.10 Calculus of gallbladder with chronic cholecystitis without obstruction (principal); K82.8 Other specified diseases of gallbladder; E66.01 Morbid (severe) obesity due to excess calories; F17.200 Nicotine dependence, unspecified, uncomplicated; Z68.41 Body mass index [BMI] 40.0-44.9, adult; Z79.899 Other long term (current) drug therapy; Z88.7 Allergy status to serum and vaccine
CPT/HCPCS: 36415; 80053; 83735; 84100; 88304; A9270-GY; J0171; J0330; J0694; J1100; J1170; J1885; J2405; J2704; J2710; J2795; J3010; J3410; J3490; J7121

== ENCOUNTER 2024-10-12 12:43 | Emergency (ER) | payer MEDICAID | END 2024-10-12 13:45 | disposition left against medical advice (07) | LOC: JP.ED 12:43 | DX: Z53.21 Procedure and treatment not carried out due to patient leaving prior to being seen by health care provider (principal) ==

== ENCOUNTER 2024-10-12 19:25 | Emergency (ER) | payer MEDICAID ==
[2024-10-12] MEDS ORDERED: Sodium Chloride 0.9% 10 ML Syringe FLUSH PRN (21:11)
[2024-10-12 21:21] LABS: BASOPHILS ABSOLUTE AUTO 0.03 K/uL (0.00-0.10); BASOPHILS PERCENT AUTO 0.3 % (0.1-1.3); EOSINOPHILS ABSOLUTE AUTO 0.30 K/uL (0.00-0.40); EOSINOPHILS PERCENT AUTO 3.1 % (0.0-5.4); IMMATURE GRAN ABSOLUTE AUTO 0.03 K/uL (0.00-0.23); IMMATURE GRAN PERCENT AUTO 0.3 % (0.0-0.7); LYMPHOCYTES ABSOLUTE AUTO 2.01 K/uL (0.8-3.3); LYMPHOCYTES PERCENT AUTO 20.4 % (11.4-47.7); MONOCYTES ABSOLUTE AUTO 0.49 K/uL (0.20-0.90); MONOCYTES PERCENT AUTO 5.0 % (3.3-12.6); NEUTROPHILS ABSOLUTE AUTO 6.97 K/uL (1.0-7.6); NEUTROPHILS PERCENT AUTO 70.9 % (40.0-78.1); PLATELET COUNT,PLT 221 K/uL (130-375); RED BLOOD CELL COUNT 4.49 M/uL (3.77-5.24); WHITE BLOOD CELL COUNT,WBC 9.8 K/uL (3.2-11.0)
[2024-10-12 21:41] LABS: A/G RATIO 1.2 (1.2-2.2); ALANINE AMINOTRANSFERASE,ALT 26 U/L (12-78); ASPARTATE AMNIOTRANSFERASE,AST 12 U/L (15-37); BILIRUBIN TOTAL 0.4 mg/dL (0.2-1.0); BLOOD UREA NITROGEN,BUN 13 mg/dL (7-18); CARBON DIOXIDE,CO2 28 mmol/L (21-32); CHLORIDE,CL 103 mmol/L (100-108); CREATININE 0.8 mg/dL (0.6-1.0); EST CRCL DRUG DOSING (CG) 89.99 mL/min; ESTIMATED GFR 95 mL/min (>60); GLUCOSE RANDOM 126 mg/dL (74-106); POTASSIUM,K 3.2 mmol/L (3.6-5.2); PROTEIN TOTAL,TP 6.8 g/dL (6.4-8.2); SODIUM,NA 137 mmol/L (140-148)
[2024-10-12 22:19] LABS: APPEARANCE,URINE SLIGHTLY CLOUDY (CLEAR); GLUCOSE,URINE NEGATIVE (NEGATIVE); OCCULT BLOOD,URINE TRACE-INTACT (NEGATIVE)
[2024-10-12 22:25] LABS: EPITHELIAL CELLS,URINE FEW
[2024-10-12] MEDS: Potassium Chloride 20 MEQ Tab.ER PO ONE (22:49)
[2024-10-12 22:56] VITALS: BP 154/79; PULSE 61
== END 2024-10-12 22:55 | disposition home or self-care (01) ==
LOC: JP.ED 19:25
DX: R10.84 Generalized abdominal pain (principal); I10 Essential (primary) hypertension; E78.00 Pure hypercholesterolemia, unspecified; K21.9 Gastro-esophageal reflux disease without esophagitis; Z88.8 Allergy status to other drugs, medicaments and biological substances; Z79.899 Other long term (current) drug therapy; Z90.710 Acquired absence of both cervix and uterus
CPT/HCPCS: 36415; 80053; 81001; 83690; 85025; 86140; 87086; 99284; A9270